=== PATIENT | male | born 1970 | race Two or more races ===

== ENCOUNTER 2022-05-11 17:55 | Emergency (ER) | payer OTHER ==
[~2022-05-11] VITALS: Ht 177.8 cm; Wt 103.0 kg
[~2022-05-11 17:55] MED LIST: METF-81 PO
[2022-05-11] MEDS ORDERED: KETO15CR2 TP (19:41)
[2022-05-11] MEDS ORDERED: INSU10VI3 SQ (19:41)
[2022-05-11] MEDS ORDERED: VANCOMYCIN 1GM/WATER(PEG/NADA) 200 ML IV ONE (19:45)
[2022-05-11 21:30] VITALS: BP 129/74
== END 2022-05-11 23:17 | disposition home or self-care (01) ==
LOC: EMS 17:55
DX: M86.9 Osteomyelitis, unspecified (principal); E11.9 Type 2 diabetes mellitus without complications
CPT/HCPCS: 99284; 96365; Q9967; Z7502

== ENCOUNTER 2022-05-12 09:14 | Emergency (ER) | payer OTHER ==
[~2022-05-12] VITALS: Ht 177.8 cm; Wt 103.0 kg
[~2022-05-12 09:14] MED LIST changes: +INSU10VI3 SQ; +KETO15CR2 TP
[2022-05-12] MEDS ORDERED: VANCOMYCIN 1GM/WATER(PEG/NADA) 200 ML IV ONE (11:00)
[2022-05-12] MEDS ORDERED: CefTRIAXone 1 GM/DEXTROSE 50 ML IV ONE (11:00)
[2022-05-12 12:55] VITALS: BP 141/83
== END 2022-05-12 13:56 | disposition home or self-care (01) ==
LOC: EMS 09:21
DX: M86.9 Osteomyelitis, unspecified (principal); E11.9 Type 2 diabetes mellitus without complications; Z98.890 Other specified postprocedural states; Z76.0 Encounter for issue of repeat prescription
CPT/HCPCS: 99284; 96365; 82962; 96368; J0696; Q9967

== ENCOUNTER 2024-01-15 22:17 | Emergency (ER) | payer OTHER ==
[~2024-01-15] VITALS: Ht 172.7 cm; Wt 99.0 kg
[~2024-01-15 22:17] MED LIST changes: +AMOX-457 PO; +CHOL500013 PO; +DULA1.5P SQ; +METF-446 PO; -METF-81 PO
[2024-01-15 22:26] VITALS: BP 120/70; PULSE 95; RESP 18; TEMP 99; O2SAT 98
== END 2024-01-16 00:01 | disposition home or self-care (01) ==
LOC: EMS 22:17
DX: Z48.00 Encounter for change or removal of nonsurgical wound dressing (principal); E11.9 Type 2 diabetes mellitus without complications; Z98.84 Bariatric surgery status; Z79.4 Long term (current) use of insulin
CPT/HCPCS: 99281; Z7502